=== PATIENT | male | born 1940 | race Caucasian/White ===

== ENCOUNTER 2016-06-09 10:29 | Outpatient (CLI) | payer MEDICARE ==
[2016-06-09 12:39] LABS: #Eosinphils 0.2 thou/uL (0.0-0.7); #Lymphocytes 1.1 thou/uL (1.20-3.40); #Monocytes 0.4 thou/uL (0.11-0.59); #Neutrophils 4.1 thou/uL (1.40-6.50); %Basophils 0.7 % (0.0-1.0); %Eosinophils 3.8 % (0.0-10.0); %Lymphocytes 18.7 % (21.0-51.0); %Monocytes 6.4 % (0.0-10.0); Hematocrit 44.6 % (42.0-52.0); Mean Platelet Volume 6.5 fL (7.4-10.4); Red Blood Cell (RBC) Count 4.61 mill/uL (4.70-6.10); White Blood Cell (WBC) Count 5.8 thou/uL (4.8-10.8)
[2016-06-09 12:49] LABS: ALT (SGPT) 17 U/L (0-55); AST (SGOT) 18 U/L (5-34); Alkaline Phosphatase 46 U/L (40-150); Anion Gap 13 mmol/L (10-20); BUN (Urea Nitrogen) 15 mg/dL (8.4-25.7); Bilirubin, Direct 0.2 mg/dL (0.1-0.3); Bilirubin, Total 0.5 mg/dL (0.2-1.2); Calc. Creatinine Clearance 0 mL/min (70-130); Calcium 9.3 mg/dL (7.8-10.44); Carbon Dioxide 27 mmol/L (23-31); Chloride 105 mmol/L (98-107); Estimated GFR-MDRD 55; LDL Cholesterol, Calculated 127 mg/dL
[2016-06-09 13:14] LABS: Hemoglobin A1c 5.2 % (4.0-6.0)
== END 2016-06-09 10:30 | disposition home or self-care (01) ==
LOC: NAVSJIPCSP 10:29
PROVIDERS: ATTEND Family Medicine
DX: I10 Essential (primary) hypertension (principal)
CPT/HCPCS: 36415; 80048; 80061; 80076; 83036; 84443; 85025

== ENCOUNTER 2016-10-07 10:07 | Outpatient (CLI) | payer MEDICARE ==
[2016-10-07 12:43] LABS: #Eosinphils 0.3 thou/uL (0.0-0.7); #Lymphocytes 0.8 thou/uL (1.20-3.40); #Monocytes 0.5 thou/uL (0.11-0.59); %Basophils 0.4 % (0.0-1.0); %Eosinophils 6.1 % (0.0-10.0); %Lymphocytes 17.2 % (21.0-51.0); %Monocytes 10.5 % (0.0-10.0); %Neutrophils 65.8 % (42.0-75.0); Hemoglobin 14.5 g/dL (14.0-18.0); Mean Corpuscular Hemoglobin 30.6 pg (27.0-31.0); Mean Corpuscular Volume 95.6 fl (80.0-94.0); Mean Platelet Volume 6.9 fL (7.4-10.4); Platelet Count 169 thou/uL (130-400); RBC Distribution Width 12.9 % (11.5-14.5); Red Blood Cell (RBC) Count 4.74 mill/uL (4.70-6.10); White Blood Cell (WBC) Count 4.6 thou/uL (4.8-10.8)
[2016-10-07 13:04] LABS: ALT (SGPT) 16 U/L (8-55); AST (SGOT) 20 U/L (5-34); Albumin 3.9 g/dL (3.4-4.8); Alkaline Phosphatase 38 U/L (40-150); Anion Gap 15 mmol/L (10-20); BUN (Urea Nitrogen) 14 mg/dL (8.4-25.7); Bilirubin, Direct 0.3 mg/dL (0.1-0.3); Bilirubin, Total 0.7 mg/dL (0.2-1.2); Calc. Creatinine Clearance 0 mL/min (70-130); Calcium 9.3 mg/dL (7.8-10.44); Carbon Dioxide 23 mmol/L (23-31); Cardiac Risk 4.4 (Less than 4.5); Chloride 107 mmol/L (98-107); Cholesterol 190 mg/dl (< 200 Desired); Estimated GFR-MDRD 54; Glucose 103 mg/dL (83-110); HDL Cholesterol 43 mg/dL (>60 Neg Risk); LDL Cholesterol, Calculated 107 mg/dL; Potassium 4.2 mmol/L (3.5-5.1); Protein, Total 6.6 g/dL (5.8-8.1); Sodium 141 mmol/L (136-145); Triglycerides 200 mg/dL (Less than 150)
[2016-10-07 13:27] LABS: Hemoglobin A1c 5.2 % (4.0-6.0)
== END 2016-10-07 10:08 ==
LOC: NAVSJIPCSP 10:07
PROVIDERS: ATTEND Family Medicine
DX: E78.5 Hyperlipidemia, unspecified (principal); I67.89 Other cerebrovascular disease; L30.9 Dermatitis, unspecified; L29.9 Pruritus, unspecified; I10 Essential (primary) hypertension; Z79.899 Other long term (current) drug therapy
CPT/HCPCS: 36415; 80048; 80061; 80076; 83036; 84443; 85025

== ENCOUNTER 2017-01-19 09:45 | Outpatient (CLI) | payer MEDICARE ==
[2017-01-19 12:34] LABS: #Eosinphils 0.2 thou/uL (0.0-0.7); #Lymphocytes 1.1 thou/uL (1.20-3.40); #Monocytes 0.4 thou/uL (0.11-0.59); #Neutrophils 2.6 thou/uL (1.40-6.50); %Basophils 0.6 % (0.0-1.0); %Eosinophils 3.8 % (0.0-10.0); %Lymphocytes 25.5 % (21.0-51.0); %Monocytes 9.3 % (0.0-10.0); %Neutrophils 60.7 % (42.0-75.0); Hemoglobin 14.2 g/dL (14.0-18.0); Mean Corpuscular HGB CONC 31.9 g/dL (32.0-36.0); Mean Corpuscular Hemoglobin 30.5 pg (27.0-31.0); Mean Corpuscular Volume 95.8 fl (80.0-94.0); Mean Platelet Volume 6.9 fL (7.4-10.4); Platelet Count 181 thou/uL (130-400); RBC Distribution Width 12.9 % (11.5-14.5); Red Blood Cell (RBC) Count 4.67 mill/uL (4.70-6.10); White Blood Cell (WBC) Count 4.3 thou/uL (4.8-10.8)
[2017-01-19 12:44] LABS: ALT (SGPT) 18 U/L (8-55); AST (SGOT) 21 U/L (5-34); Albumin 3.9 g/dL (3.4-4.8); Alkaline Phosphatase 41 U/L (40-150); Anion Gap 16 mmol/L (10-20); BUN (Urea Nitrogen) 19 mg/dL (8.4-25.7); Bilirubin, Direct 0.2 mg/dL (0.1-0.3); Bilirubin, Total 0.6 mg/dL (0.2-1.2); Calc. Creatinine Clearance 0 mL/min (70-130); Calcium 9.1 mg/dL (7.8-10.44); Carbon Dioxide 24 mmol/L (23-31); Cardiac Risk 4.3 (Less than 4.5); Chloride 105 mmol/L (98-107); Cholesterol 187 mg/dl (< 200 Desired); Estimated GFR-MDRD 53; Glucose 91 mg/dL (83-110); HDL Cholesterol 43 mg/dL (>60 Neg Risk); LDL Cholesterol, Calculated 104 mg/dL; Protein, Total 6.6 g/dL (5.8-8.1); Sodium 141 mmol/L (136-145); Triglycerides 200 mg/dL (Less than 150)
[2017-01-19 13:03] LABS: Hemoglobin A1c 5.2 % (4.0-6.0)
== END 2017-01-19 09:46 | disposition home or self-care (01) ==
LOC: NAVSJIPCSP 09:45
PROVIDERS: ATTEND Family Medicine
DX: E78.5 Hyperlipidemia, unspecified (principal); I10 Essential (primary) hypertension; I67.89 Other cerebrovascular disease; Z79.899 Other long term (current) drug therapy
CPT/HCPCS: 36415; 80048; 80061; 80076; 83036; 84443; 85025

== ENCOUNTER 2017-05-18 16:27 | Outpatient (CLI) | payer MEDICARE ==
--- NOTE | 2017-05-18 16:54 | RAD ---
CHEST TWO VIEWS: 05/18/17 HISTORY: COPD. Fever. COMPARISON: 03/07/17. FINDINGS: The cardiac silhouette is unremarkable. Pulmonary vasculature is upper limits of normal. Lungs are hy perinflated with scattered interstitial scarring, similar in appearance to the prior study. Reticulon odular interstitial prominence is more pronounced than on the previous exam. Lungs are hyperinflated with flattening of the hemidiaphragms. Old right rib fractures are apparent. Small metallic foreign b boni within the left upper anterior chest soft tissues is apparent. Internal fixation of the right cla vicle is stable. IMPRESSION: 1. Diffuse increased in reticulonodular interstitial prominence may be related to pulmonary vasc ular congestion or chronic interstitial pneumonitis. No lobar consolidation is evident. 2. Other chronic type findings are stable. POS: [facility]
== END 2017-05-18 16:28 | disposition home or self-care (01) ==
LOC: NAV RAD 16:27
PROVIDERS: ATTEND Family Medicine
DX: J44.1 Chronic obstructive pulmonary disease with (acute) exacerbation (principal); J44.9 Chronic obstructive pulmonary disease, unspecified; J06.9 Acute upper respiratory infection, unspecified; J84.89 Other specified interstitial pulmonary diseases; Z79.899 Other long term (current) drug therapy
CPT/HCPCS: 71020

== ENCOUNTER 2019-05-09 14:51 | Outpatient (CLI) | payer MEDICARE ==
--- NOTE | 2019-05-09 15:28 | CT ---
CT BRAIN WITHOUT CONTRAST: COMPARISON: 04/28/2008 HISTORY: Left-sided weakness FINDINGS: Changes of cortical atrophy and chronic small vessel ischemic disease are again seen. 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 No evidence of acute infarct, hemorrhage, midline shift or abnormal extra-axial fluid collections is seen. The ventricular size is appropriate and the basilar c isterns are patent. The bony calvarium is intact. The visualized paranasal sinuses and mastoid air cells are well aerated. IMPRESSION: No CT evidence of acute intracranial process.
== END 2019-05-09 14:52 | disposition home or self-care (01) ==
LOC: NAV CT 14:51
PROVIDERS: ATTEND Nurse Practitioner Adult Health
DX: R47.81 Slurred speech (principal); R53.1 Weakness; R42 Dizziness and giddiness
CPT/HCPCS: 70450

== ENCOUNTER 2019-05-15 10:57 | Emergency (ER) | payer MEDICARE ==
[~2019-05-15 10:57] MED LIST: Iopamidol 370 76% 100 ML VIAL ONE
[2019-05-15 11:12] LABS: #Eosinphils 0.1 thou/uL (0.0-0.7); #Lymphocytes 0.8 thou/uL (1.20-3.40); #Monocytes 0.6 thou/uL (0.11-0.59); #Neutrophils 3.8 thou/uL (1.40-6.50); %Basophils 0.4 % (0.0-1.0); %Eosinophils 2.2 % (0.0-10.0); %Lymphocytes 15.4 % (21.0-51.0); %Monocytes 10.9 % (0.0-10.0); %Neutrophils 71.1 % (42.0-75.0); Hemoglobin 14.8 g/dL (14.0-18.0); Mean Corpuscular Hemoglobin 30.4 pg (27.0-31.0); Mean Platelet Volume 8.2 fL (7.4-10.4); Platelet Count 182 thou/uL (130-400); RBC Distribution Width 12.5 % (11.5-14.5); Red Blood Cell (RBC) Count 4.88 mill/uL (4.70-6.10); White Blood Cell (WBC) Count 5.4 thou/uL (4.8-10.8)
[2019-05-15 11:17] LABS: INR-International Normal Ratio 1.1; PTT 26.7 SEC (22.9-36.1)
--- NOTE | 2019-05-15 11:25 | CT ---
Head CT without contrast 05/15/2019: COMPARISON: 05/09/2019 HISTORY: Slurred speech with left-sided facial droop-acute stroke protocol TECHNIQUE: Axial CT imaging at 5 mm intervals from vertex through skull base without contrast FINDINGS: Imaged paranasal sinuses/mastoid air cells well-aerated. No displaced calvarial fracture. Prominent stable diffuse cerebral volume loss. Extensive multifocal periventricular, deep, and subcor tical white matter hypodensity, evidence of significant small vessel disease. Numerous stable bilateral lacunar infarctions. No intracranial hemorrhage, midline shift, or mass effect. IMPRESSION: No intracranial hemorrhage. Chronic findings as detailed above. If there is clinical conc nicole for intra-arterial thrombus, CT angiogram may be beneficial. Results called to Dr. Kam 11:21 AM 05/15/2019.
[2019-05-15 11:28] LABS: ALT (SGPT) 39 U/L (8-55); AST (SGOT) 33 U/L (5-34); Albumin 4.1 g/dL (3.4-4.8); Alkaline Phosphatase 47 U/L (40-110); Anion Gap 14 mmol/L (10-20); BUN (Urea Nitrogen) 14 mg/dL (8.4-25.7); Bilirubin, Total 0.6 mg/dL (0.2-1.2); CKMB 1.1 ng/mL (0-6.6); Calc. Creatinine Clearance 0 mL/min (70-130); Calcium 9.5 mg/dL (7.8-10.44); Carbon Dioxide 25 mmol/L (23-31); Chloride 106 mmol/L (98-107); Estimated GFR-MDRD 57; Globulin 2.7 g/dL (2.4-3.5); Glucose 118 mg/dL (83-110); Potassium 3.9 mmol/L (3.5-5.1); Protein, Total 6.8 g/dL (5.8-8.1); Sodium 141 mmol/L (136-145); Troponin I Less than 0.010 ng/mL (< 0.028)
--- NOTE | 2019-05-15 11:53 | CT ---
INDICATION: Stroke. Facial droop. Slurred speech. COMPARISON: None TECHNIQUE: CT angiogram of the head and neck are performed in the axial plane. Three-dimensional refo rmatted images are submitted for interpretation. FINDINGS: CTA OF THE HEAD WITH CONTRAST: POSTCONTRAST CT OF BRAIN: Pathologic enhancement: No pathologic enhancement the brain. White matter hypodensities due to chroni c small vessel ischemic changes. Postcontrast soft tissue neck CT: Sinuses: Adequate aeration of the sinuses and mastoid air cells. Orbits: Bilateral ocular lenses are appropriately located. Both globes are intact. Retrobulbar fat is preserved. Symmetric attenuation the optic nerves and ocular rectus muscles. Salivary glands:Symmetric attenuation of the parotid and submandibular glands. Thyroid gland: Heterogeneously enlarged thyroid gland, right lobe is larger than the contralateral si de. 1.3 cm hypodense lesion in the right thyroid lobe. Incomplete evaluation. Lymph nodes: No evidence of lymphadenopathy by size criteria. Paraspinal muscles: Symmetric attenuation of the sternocleidomastoid muscles. Appropriate attenuation of the paraspinal muscles. Cervical spine:Vertebral body height is maintained. No fracture. Varying degrees of central canal naman nosis or significant neural foraminal narrowing due to degenerative change. Limited evaluation by technique. Upper mediastinum and lung apices: Upper mediastinum is unremarkable. Extensive emphysematous changes in the visualized lung parenchyma. CTA OF THE NECK WITH CONTRAST: Aorta: Visualized aorta has a normal caliber. Right carotid artery: Right carotid origin and proximal/mid common carotid artery have appropriate en hancement and luminal diameter. There is a string sign involving the distal common carotid artery, carotid bifurcation and proximal internal carotid artery. The mid to distal internal carotid artery h ave appropriate enhancement and luminal diameter. The overall diameter of the right mid and distal internal carotid artery is smaller than the contralateral side. Left carotid: Appropriate enhancement and luminal diameter of the origin of the left carotid artery. There is short segment mild stenosis due to noncalcified plaque in the mid to distal left common carotid artery. There is short segment mild narrowing involving the carotid bifurcation and proximal left internal carotid artery due to calcified plaque. No significant stenosis based upon NASCET criteria. Subclavian arteries:Visualized subclavian arteries are patent. Vertebral arteries:Cervical left vertebral artery is patent throughout its course in the neck. The di stal right vertebral artery does have contrast opacification. The left vertebral artery is dominant CTA OF THE BRAIN: Intracranial internal carotid arteries:Asymmetrically smaller intracranial right internal carotid art nina. 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 Bilateral A2 segments h ave appropriate enhancement and luminal diameter. Bilateral M1 segments and proximal MCA branches have appropriate enhancement and luminal diameter. Intracranial vertebral arteries: Patent. Posterior circulation: Basilar artery and bilateral P1 segments have appropriate enhancement and edgar nal diameter. IMPRESSION: 1. String sign involving the right carotid artery. 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 2. Atherosclerosis with mild stenosis based upon NASCET criteria in the left carotid artery. 3. Dominant left vertebral artery. Proximal and mid right vertebral artery did not adequately opacify with contrast. 4..Heterogeneously enlarged thyroid gland. Nonemergent thyroid ultrasound recommended. 5. Asymmetrically smaller intracranial internal carotid artery. No significant stenosis at the level of [place]. Results of study discussed with Dr. Kam 05/15/2019 11:52 AM Code CR Transcribed Date/Time: 05/15/2019 12:03 PM
[2019-05-15] MEDS ORDERED: Aspirin Chewable 81 MG TAB ONE (12:17)
== END 2019-05-15 12:40 | disposition short-term general hospital (02) ==
LOC: NAV ERS 10:57
DX: I63.9 Cerebral infarction, unspecified (principal); I77.89 Other specified disorders of arteries and arterioles; Z87.891 Personal history of nicotine dependence; Z79.899 Other long term (current) drug therapy
CPT/HCPCS: 36415; 70450; 70496; 70498; 80053; 82553; 84443; 84484; 85025; 85610; 85730; Q9967

== ENCOUNTER 2019-05-22 20:18 | Emergency (ER) | payer MEDICARE ==
[2019-05-22 21:51] LABS: Bilirubin Negative (Negative); Blood, Urine Trace (Negative); Clarity Clear (Clear); Glucose, Urine (Dipstick) Negative (Negative); Leukocyte Negative (Negative); Nitrite Negative (Negative); Protein, Urine (Dipstick) Negative (Neg-Trace); Urobilinogen 0.2 mg/dL (Less than 2)
[2019-05-22 21:57] LABS: Bacteria/HPF None Seen HPF (None Seen); RBC/HPF 0-3 HPF (0-3); Squamous Epithelial 0-3 HPF (0-3); WBC/HPF None Seen HPF (0-3)
== END 2019-05-22 22:23 | disposition home or self-care (01) ==
LOC: NAV ERS 20:18
DX: R33.9 Retention of urine, unspecified (principal); Z86.73 Personal history of transient ischemic attack (TIA), and cerebral infarction without residual deficits; Z87.891 Personal history of nicotine dependence; Z79.82 Long term (current) use of aspirin; Z79.899 Other long term (current) drug therapy; Z79.51 Long term (current) use of inhaled steroids
CPT/HCPCS: 51703; 51798; 81003; 81015

== ENCOUNTER 2019-05-23 10:11 | Emergency (ER) | payer MEDICARE ==
[2019-05-23 11:13] LABS: #Eosinphils 0.1 thou/uL (0.0-0.7); #Lymphocytes 0.8 thou/uL (1.20-3.40); #Monocytes 0.6 thou/uL (0.11-0.59); #Neutrophils 6.5 thou/uL (1.40-6.50); %Basophils 0.4 % (0.0-1.0); %Eosinophils 1.2 % (0.0-10.0); %Lymphocytes 9.9 % (21.0-51.0); %Monocytes 7.5 % (0.0-10.0); %Neutrophils 81.1 % (42.0-75.0); Mean Corpuscular HGB CONC 32.8 g/dL (32.0-36.0); Mean Corpuscular Hemoglobin 30.3 pg (27.0-31.0); Mean Corpuscular Volume 92.4 fL (78.0-98.0); Mean Platelet Volume 8.2 fL (7.4-10.4); Platelet Count 245 thou/uL (130-400); RBC Distribution Width 11.9 % (11.5-14.5); Red Blood Cell (RBC) Count 5.27 mill/uL (4.70-6.10)
[2019-05-23 11:26] LABS: PTT 29.4 SEC (22.9-36.1); Prothrombin Time 13.5 SEC (12.0-14.7)
[2019-05-23 11:27] LABS: ALT (SGPT) 29 U/L (8-55); AST (SGOT) 22 U/L (5-34); Albumin 4.5 g/dL (3.4-4.8); Alkaline Phosphatase 57 U/L (40-110); Anion Gap 17 mmol/L (10-20); BUN (Urea Nitrogen) 14 mg/dL (8.4-25.7); Bilirubin, Total 0.8 mg/dL (0.2-1.2); CK (CPK) 53 U/L (30-200); Calc. Creatinine Clearance 0 mL/min (70-130); Calcium 10.4 mg/dL (7.8-10.44); Carbon Dioxide 24 mmol/L (23-31); Chloride 104 mmol/L (98-107); Estimated GFR-MDRD 54; Globulin 3.2 g/dL (2.4-3.5); Glucose 107 mg/dL (83-110); Potassium 4.3 mmol/L (3.5-5.1); Protein, Total 7.7 g/dL (5.8-8.1); Sodium 141 mmol/L (136-145)
--- NOTE | 2019-05-23 11:57 | RAD ---
XR Chest Pa Lat STANDARD History: Urinary retention Comparison: Radiograph February 2018 Findings: Scarring both lung bases is similar. No pneumothorax. No effusion. No confluent airspace co nsolidation. Similar appearance mid and lower thoracic spine compression deformities. Impression: Similar examination. No acute intrathoracic abnormality
== END 2019-05-23 12:40 | disposition home or self-care (01) ==
LOC: NAV ERS 10:11
DX: R31.9 Hematuria, unspecified (principal); R33.9 Retention of urine, unspecified; Z86.73 Personal history of transient ischemic attack (TIA), and cerebral infarction without residual deficits; Z79.899 Other long term (current) drug therapy; Z79.82 Long term (current) use of aspirin
CPT/HCPCS: 36415; 71046; 80053; 82550; 83880; 84443; 84484; 85025; 85610; 85730; 93005

== ENCOUNTER → 2019-05-31 | Emergency (ER) | payer MEDICARE ==
[~2019-05-31] MED LIST changes: +Acetaminophen 325 MG TAB ONE; +Albuterol Sulfate 2.5 mg/0.5 ml Neb ONE; +HYDROcodone/Acetaminophen 10/325 mg Tablet ONE; -Iopamidol 370 76% 100 ML VIAL ONE; +Ipratropium Bromide 2.5 ml Neb ONE; +Sodium Chloride 0.9% 0 ML ONE; +Sodium Chloride 0.9% 1,000 ML ONE; +Sodium Chloride 0.9% 100 ML ONE; +Sodium Chloride 0.9% 500 ML ONE; +cefTRIAXone\\ROCEPHIN 2 GM VIAL ONE
[2019-05-31 14:19] LABS: #Lymphocytes 0.7 thou/uL (1.20-3.40); #Monocytes 0.7 thou/uL (0.11-0.59); #Neutrophils 7.1 thou/uL (1.40-6.50); %Basophils 0.5 % (0.0-1.0); %Eosinophils 0.2 % (0.0-10.0); %Lymphocytes 8.1 % (21.0-51.0); %Monocytes 8.1 % (0.0-10.0); %Neutrophils 83.1 % (42.0-75.0); Hemoglobin 12.9 g/dL (14.0-18.0); Mean Corpuscular HGB CONC 32.9 g/dL (32.0-36.0); Mean Corpuscular Hemoglobin 30.5 pg (27.0-31.0); Mean Corpuscular Volume 92.8 fL (78.0-98.0); Mean Platelet Volume 9.2 fL (7.4-10.4); Platelet Count 193 thou/uL (130-400); RBC Distribution Width 11.7 % (11.5-14.5); Red Blood Cell (RBC) Count 4.24 mill/uL (4.70-6.10); White Blood Cell (WBC) Count 8.5 thou/uL (4.8-10.8)
[2019-05-31 14:28] LABS: ALT (SGPT) 36 U/L (8-55); AST (SGOT) 35 U/L (5-34); Albumin 3.7 g/dL (3.4-4.8); Alkaline Phosphatase 58 U/L (40-110); Anion Gap 16 mmol/L (10-20); BUN (Urea Nitrogen) 15 mg/dL (8.4-25.7); Bilirubin, Total 0.8 mg/dL (0.2-1.2); Calc. Creatinine Clearance 0 mL/min (70-130); Carbon Dioxide 20 mmol/L (23-31); Chloride 104 mmol/L (98-107); Estimated GFR-MDRD 49; Globulin 2.7 g/dL (2.4-3.5); Glucose 105 mg/dL (83-110); Potassium 3.7 mmol/L (3.5-5.1); Protein, Total 6.4 g/dL (5.8-8.1); Sodium 136 mmol/L (136-145)
[2019-05-31 14:33] LABS: Bilirubin Negative (Negative); Blood, Urine Large (Negative); Clarity Cloudy (Clear); Glucose, Urine (Dipstick) Negative (Negative); Leukocyte Large (Negative); Nitrite Positive (Negative); Protein, Urine (Dipstick) 100 mg/dL (Neg-Trace); Urobilinogen 0.2 mg/dL (Less than 2)
[2019-05-31 14:35] LABS: Bacteria/HPF 3+ HPF (None Seen); WBC/HPF Greater than 50 HPF (0-3)
--- NOTE | 2019-05-31 15:44 | RAD ---
CHEST 1 VIEW: HISTORY: Chest pain COMPARISON: Radiograph of prior day. FINDINGS: There is ectasia of the ascending aorta. Scarring in both lung bases is similar below the peripheral aspect right upper lobe. No pneumothorax. No acute osseous abnormality. IMPRESSION: Given the differences in technique, no significant change. POS: [facility]
== END ==
LOC: NAV ERS 13:50
DX: A41.9 Sepsis, unspecified organism (principal); N39.0 Urinary tract infection, site not specified; J96.90 Respiratory failure, unspecified, unspecified whether with hypoxia or hypercapnia; E86.0 Dehydration; Z86.73 Personal history of transient ischemic attack (TIA), and cerebral infarction without residual deficits; Z87.891 Personal history of nicotine dependence; Z79.899 Other long term (current) drug therapy; Z79.01 Long term (current) use of anticoagulants; Z79.82 Long term (current) use of aspirin
CPT/HCPCS: 71045; 80053; 81003; 81015; 83605; 85025; 87040; 87077; 87086; 87186; 93005; 96365; J0696; J3490; J7050; J7611; J7620

== ENCOUNTER 2024-02-27 13:48 | Emergency (ER) | payer MEDICARE ==
[~2024-02-27 13:48] MED LIST changes: -Acetaminophen 325 MG TAB ONE; -Albuterol Sulfate 2.5 mg/0.5 ml Neb ONE; -HYDROcodone/Acetaminophen 10/325 mg Tablet ONE; +Iopamidol 370 76% 100 ML VIAL ONE; -Ipratropium Bromide 2.5 ml Neb ONE; -Sodium Chloride 0.9% 0 ML ONE; -Sodium Chloride 0.9% 1,000 ML ONE; -Sodium Chloride 0.9% 100 ML ONE; -Sodium Chloride 0.9% 500 ML ONE; -cefTRIAXone\\ROCEPHIN 2 GM VIAL ONE
[2024-02-27 14:38] LABS: INR-International Normal Ratio 1.5; PTT 32.3 sec (22.9-36.1); Prothrombin Time 18.5 sec (12.0-14.7)
[2024-02-27 14:43] LABS: ALT (SGPT) 230 U/L (8-55); AST (SGOT) 385 U/L (5-34); Albumin 2.1 g/dL (3.4-4.8); Alkaline Phosphatase 964 U/L (40-110); Anion Gap 16 mmol/L (10-20); BUN (Urea Nitrogen) 17 mg/dL (8.4-25.7); Calc. Creatinine Clearance 0 mL/min (70-130); Calcium 9.1 mg/dL (7.8-10.44); Carbon Dioxide 24 mmol/L (23-31); Chloride 100 mmol/L (98-107); Estimated GFR 47; Glucose 101 mg/dL (83-110); Lipase 680 U/L (8-78); Protein, Total 6.1 g/dL (5.8-8.1); Sodium 137 mmol/L (136-145)
[2024-02-27 14:53] LABS: #Eosinophils 0.1 thou/uL (0.0-0.7); #Monocytes 0.7 thou/uL (0.11-0.59); #Neutrophils 5.4 thou/uL (1.40-6.50); %Basophils 0.6 % (0.0-1.0); %Eosinophils 0.8 % (0.0-10.0); %Lymphocytes 11.2 % (21.0-51.0); %Monocytes 10.5 % (0.0-10.0); Anisocytosis MODERATE=16-30 cells (100X) (0-5/hpf); Hematocrit 42.2 % (42.0-52.0); Hemoglobin 13.3 g/dL (14.0-18.0); MDiff Complete? YES; Mean Corpuscular HGB CONC 31.6 g/dL (32.0-36.0); Mean Corpuscular Hemoglobin 29.7 pg (27.0-31.0); Mean Corpuscular Volume 93.9 fl (78.0-98.0); Mean Platelet Volume 9.6 fL (7.4-10.4); Platelet Adequacy Comment Appears Adequate; Platelet Count 243 10x3/uL (130-400); RBC Distribution Width 17.4 % (11.5-14.5); Red Blood Cell (RBC) Count 4.49 mill/uL (4.70-6.10); Stomatocytes MARKED = >16 cells (100X) (0-1/hpf); Target Cells SLIGHT = 2-5 cells (100X) (0-1/hpf); White Blood Cell (WBC) Count 7.1 10x3/uL (4.8-10.8)
[2024-02-27 15:01] LABS: Bilirubin, Total 21.3 mg/dL (0.2-1.2)
[2024-02-27] MEDS ORDERED: Dextrose 5 %-0.45 % NaCl 1,000 ML ONE (15:22)
== END 2024-02-27 17:05 | disposition short-term general hospital (02) ==
LOC: NAV ERS 13:48
DX: K85.90 Acute pancreatitis without necrosis or infection, unspecified (principal); K83.8 Other specified diseases of biliary tract; J44.9 Chronic obstructive pulmonary disease, unspecified; R09.02 Hypoxemia; E87.6 Hypokalemia; N28.9 Disorder of kidney and ureter, unspecified; K75.9 Inflammatory liver disease, unspecified; E80.6 Other disorders of bilirubin metabolism
CPT/HCPCS: 74177; 80053; 82140; 83690; 85025; 85610; 85730; J7042; Q9967